=== PATIENT | female | born 1950 | race Caucasian/White ===

== ENCOUNTER → 2017-08-11 | Outpatient (CLI) | payer OTHER | LOC: BMCIMAGING 15:24 | PROVIDERS: ATTEND Internal Medicine | DX: M79.671 Pain in right foot (principal); M19.071 Primary osteoarthritis, right ankle and foot; M77.31 Calcaneal spur, right foot ==

== ENCOUNTER → 2017-08-29 | Outpatient (CLI) | payer BC, OTHER | LOC: BMCIMAGING 10:16 | PROVIDERS: ATTEND Internal Medicine | DX: R05 Cough (principal); R06.00 Dyspnea, unspecified ==

== ENCOUNTER → 2018-03-24 | Outpatient (CLI) | payer BC | LOC: FIMAGING 19:13 | PROVIDERS: ATTEND Internal Medicine | DX: R27.0 Ataxia, unspecified (principal); R11.0 Nausea ==